=== PATIENT | male | born 1945 | race Caucasian/White ===

== ENCOUNTER → 2020-01-30 14:04 | Outpatient (REF) | payer OTHER, SELFPAY | LOC: ANHLAB 14:04 | PROVIDERS: PCP Emergency Medicine; Visit Provider Nurse Practitioner | DX: D04.39 Carcinoma in situ of skin of other parts of face (principal) | CPT/HCPCS: 88305 ==

== ENCOUNTER → 2020-02-26 08:13 | Outpatient (REF) | payer OTHER, SELFPAY | LOC: ANHLAB 08:13 | PROVIDERS: PCP Emergency Medicine; Visit Provider Nurse Practitioner | DX: C44.329 Squamous cell carcinoma of skin of other parts of face (principal) | CPT/HCPCS: 88305; 88331 ==

== ENCOUNTER → 2021-01-09 13:38 | Outpatient (REF) | payer OTHER, SELFPAY | LOC: ANHLAB 13:38 | PROVIDERS: PCP Emergency Medicine; Visit Provider Nurse Practitioner | DX: L98.9 Disorder of the skin and subcutaneous tissue, unspecified (principal) | CPT/HCPCS: 88305 ==

== ENCOUNTER → 2021-02-03 10:55 | Outpatient (REF) | payer OTHER, SELFPAY | LOC: ANHLAB 10:55 | PROVIDERS: PCP Emergency Medicine; Visit Provider Nurse Practitioner | DX: C44.42 Squamous cell carcinoma of skin of scalp and neck (principal) | CPT/HCPCS: 88305; 88331 ==

== ENCOUNTER → 2021-09-16 10:40 | Outpatient (REF) | payer OTHER, SELFPAY | LOC: ANHLAB 10:40 | PROVIDERS: PCP Emergency Medicine; Visit Provider Nurse Practitioner | DX: C44.519 Basal cell carcinoma of skin of other part of trunk (principal) | CPT/HCPCS: 88305 ==